=== PATIENT | male | born 1985 | race Caucasian/White ===

== ENCOUNTER 2017-05-27 09:49 | Emergency (ER) | payer OTHER ==
[2017-05-27] MEDS ORDERED: PANTOPRAZOLE 40 MG TABLET PO STA (10:57)
[2017-05-27] MEDS ORDERED: SUCRALFATE 1 GM/10 ML UDC PO STA (10:58)
[2017-05-27] MEDS ORDERED: SUCRALFATE 1 GM/10 ML UDC ONE (10:58)
[2017-05-27] MEDS ORDERED: PANTOPRAZOLE 40 MG TABLET ONE (10:58)
--- NOTE | 2017-05-27 11:01 | ED Physician Documentation ---
PD HPI GI BLEED - Stated complaint Stated Complaint: BLACK STOOL - Chief complaint Chief Complaint: Abd Pain - History obtained from History obtained from: Patient - History of Present Illness Timing - onset: How many days ago (2) Timing - duration: Days Timing - details: Gradual onset, Still present Associated symptoms: Vomiting, Black/tarry stool, Abdominal pain Contributing factors: No: Sick contact, Bad food, Recent antibiotics, Alcohol use, NSAID use Similar symptoms before: Has not had sx before Recently seen: Not recently seen - Additional information Additional information: Previously healthy 31-year-old male developed some epigastric pain and hiccuping over the past 2 days he did develop some vomiting of undigested food and then this morning he had a bowel movement that was jet black. He has had only a single bowel movement and he has vomited twice. He has not had ulcer before. He does say that he takes ibuprofen periodically he has not taken it recently with the exception of this morning when he had a headache. Review of Systems Constitutional: denies: Fever Eyes: denies: Decreased vision Ears: denies: Ear pain Nose: denies: Rhinorrhea / runny nose, Congestion Throat: denies: Sore throat Cardiac: denies: Chest pain / pressure, Palpitations Respiratory: denies: Dyspnea, Cough GI: reports: Abdominal Pain, Nausea, Vomiting, Bloody / black stool : denies: Dysuria, Frequency Skin: denies: Rash Musculoskeletal: denies: Neck pain, Back pain, Extremity pain Neurologic: denies: Generalized weakness, Focal weakness, Numbness PD PAST MEDICAL HISTORY - Past Medical History Past Medical History: No - Past Surgical History Past Surgical History: Yes Ortho: Other - Present Medications Home Medications: Ambulatory Orders Medication Instructions Recorded Confirmed Pantoprazole [Protonix] 40 mg PO DAILY #30 tablet 05/27/17 Sucralfate [Carafate] 1 gm PO ACHS #300 ml 05/27/17 - Allergies Allergies/Adverse Reactions: Allergies Allergy/AdvReac Type Severity Reaction Status Date / Time No Known Drug Allergies Allergy Verified 05/27/17 09:55 - Social History Does the pt smoke?: No Smoking Status: Never smoker Does the pt drink ETOH?: No Does the pt have substance abuse?: No - Immunizations Immunizations are current?: Yes PD ED PE NORMAL - Vitals Vital signs reviewed: Yes (Hypertensive) - General General: Alert and oriented X 3, No acute distress, Well developed/nourished - HEENT HEENT: Atraumatic, PERRL - Neck Neck: Supple, no meningeal sign - Cardiac Cardiac: RRR, No murmur - Respiratory Respiratory: No respiratory distress, Clear bilaterally - Abdomen Abdomen: Soft, Non tender - Rectal Rectal: Other (normal sphincter tone, smooth non-tender prostate, no stool in vault the scant black material on the glove is guiac +) - Back Back: No CVA TTP, No spinal TTP - Derm Derm: Normal color, Warm and dry, No rash - Extremities Extremities: No deformity, No edema - Neuro Neuro: No motor deficit, No sensory deficit - Psych Psych: Normal mood, Normal affect Results - Vitals Vitals: Vital Signs - 24 hr 05/27/17 05/27/17 09:53 11:50 Temperature 36.6 C Heart Rate 93 76 Respiratory 16 16 Rate Blood Pressure 143/94 H 137/88 H O2 Saturation 100 100 Oxygen O2 Source Room air - Labs Labs: Laboratory Tests 05/27/17 05/27/17 11:40 11:40 WBC 8.0 RBC 4.99 Hgb 14.2 Hct 41.8 L MCV 83.7 MCH 28.4 MCHC 34.0 RDW 12.8 Plt Count 183 MPV 9.3 Neut # 6.3 Lymph # 1.1 L [place] # 0.4 Eos # 0.1 Baso # 0.1 Absolute Nucleated RBC 0.01 Nucleated RBCs 0.1 Sodium 139 Potassium 4.1 Chloride 102 Carbon Dioxide 30 Anion Gap 7.0 BUN 15 Creatinine 0.9 Estimated GFR (MDRD) 97 Glucose 90 Calcium 9.5 Total Bilirubin 1.2 H AST 27 ALT 25 Alkaline Phosphatase 86 Total Protein 8.3 H Albumin 4.8 Globulin 3.5 Albumin/Globulin Ratio 1.4 Lipase 19 L PD MEDICAL DECISION MAKING - ED course Complexity details: reviewed results, re-evaluated patient, considered differential, d/w patient ED course: 31-year-old previously healthy male with black stool that is guaiac positive has normal blood counts here today and normal BUN. He is administered Protonix orally as well as Carafate here in the emergency department. I have discussed with the patient signs and symptoms that would require urgent reevaluation including vomiting of coffee grounds and maroon diarrhea. Departure - Departure Disposition: 01 Home, Self Care Clinical Impression: GI bleeding Qualifiers: GI bleed type/associated pathology: melena Qualified Code(s): K92.1 - Melena Condition: Stable Instructions: ED Bleed UGI Stable Follow-Up: PAULINA Sotomayor [Provider Group] Prescriptions: Sucralfate [Carafate] 1 gm PO ACHS #300 ml Pantoprazole [Protonix] 40 mg PO DAILY #30 tablet
[2017-05-27 11:51] VITALS: BP 137/88
[2017-05-27 11:53] LABS: BASOPHILS # (AUTO) 0.1 10^3/uL (0.0-0.1); BASOPHILS % (AUTO) 0.8 %; EOSINOPHILS # (AUTO) 0.1 10^3/uL (0.0-0.7); EOSINOPHILS % (AUTO) 0.9 %; HCT - HEMATOCRIT 41.8 % (42.0-52.0); HGB - HEMOGLOBIN 14.2 g/dL (14.0-18.0); LYMPHOCYTES # (AUTO) 1.1 10^3/uL (1.5-3.5); LYMPHOCYTES % (AUTO) 13.9 %; MEAN CORPUSCULAR HEMOGLOBIN 28.4 pg (27.0-31.0); MEAN CORPUSCULAR VOLUME 83.7 fL (80.0-94.0); MEAN PLATELET VOLUME 9.3 fL (7.4-11.4); MONOCYTES # (AUTO) 0.4 10^3/uL (0.0-1.0); MONOCYTES % (AUTO) 5.4 %; NEUTROPHILS # (AUTO) 6.3 10^3/uL (1.5-6.6); NUCLEATED RED BLOOD CELLS AUTO 0.1 /100WBC; RED BLOOD COUNT 4.99 10^6/uL (4.70-6.10); RED CELL DISTRIBUTION WIDTH 12.8 % (12.0-15.0)
[2017-05-27 12:06] LABS: ALBUMIN/GLOBULIN RATIO 1.4 (1.0-2.2); BILIRUBIN,TOTAL 1.2 mg/dL (0.2-1.0); CALCIUM 9.5 mg/dL (8.5-10.3); CREATININE 0.9 mg/dL (0.6-1.2); POTASSIUM 4.1 mmol/L (3.5-5.0); TOTAL PROTEIN 8.3 g/dL (6.7-8.2)
== END 2017-05-27 12:25 | disposition home or self-care (01) ==
LOC: ED 09:49
DX: K92.1 Melena (principal)
CPT/HCPCS: 36415; 80053; 83690; 85025; 86850; 86900; 86901; 99283; A9270

== ENCOUNTER 2018-05-20 10:22 | Outpatient (CLI) | END 2018-05-20 10:23 | disposition home or self-care (01) ==

== ENCOUNTER 2018-05-27 20:30 | Outpatient (CLI) | payer OTHER | END 2018-05-27 20:31 | disposition home or self-care (01) | LOC: SC 20:30 | PROVIDERS: ATTEND Internal Medicine Pulmonary Disease | DX: G47.30 Sleep apnea, unspecified (principal); G47.10 Hypersomnia, unspecified | CPT/HCPCS: 95810 ==

== ENCOUNTER 2018-06-10 08:57 | Outpatient (CLI) | payer OTHER | END 2018-06-10 08:58 | disposition home or self-care (01) | LOC: SC 08:57 | PROVIDERS: ATTEND Internal Medicine Pulmonary Disease | DX: G47.30 Sleep apnea, unspecified (principal); R06.00 Dyspnea, unspecified | CPT/HCPCS: 99212; 99213 ==